=== PATIENT | male | born 1980 | race Hispanic/Latino ===

== ENCOUNTER 2019-07-21 17:09 | Inpatient (IN) | payer MEDICAID, OTHER ==
[~2019-07-21] VITALS: Ht 167.6 cm; Wt 147.5 kg
[2019-07-21] MEDS ORDERED: MORPHINE SULFATE 4 MG/1ML SYG ONE ×2 (17:18→21:00)
[2019-07-21] MEDS ORDERED: ONDANSETRON HCL 4 MG/2 ML VIAL ONE ×2 (17:18→21:00)
[2019-07-21] MEDS ORDERED: LIDOCAINE HCL 1% 20 ML VIAL ONE (17:27)
[2019-07-21] MEDS ORDERED: BUPIVACAINE/PF 0.5% 30ML VIAL ONE (17:27)
[2019-07-21] MEDS ORDERED: CLINDAMYCIN 600 MG/D5% WATER 50 ML IV ONE (17:42)
[2019-07-21 17:43] LABS: BASOPHILS % (AUTO) 0.9 % (0.0-5.0); EOSINOPHILS % (AUTO) 2.4 % (0.0-8.0); HEMATOCRIT 43.5 % (42-54); LYMPHOCYTES % (AUTO) 26.7 % (21.0-51.0); MEAN CORPUSCULAR HEMOGLOBIN 32.2 pg (27.0-33.0); MEAN CORPUSCULAR HGB CONC 34.9 g/dL (32.0-36.0); MEAN CORPUSCULAR VOLUME 92.3 fL (79-99); MONOCYTES % (AUTO) 9.4 % (3.0-13.0); NEUTROPHILS % (AUTO) 60.6 % (40.0-77.0); NUCLEATED RED BLOOD CELLS 0.1 % (0.0-0.19); PLATELET COUNT (AUTO) 179 K/uL (130-400); RED BLOOD CELL COUNT(AUTO) 4.71 MIL/uL (4.50-6.20); RED CELL DISTRIBUTION WIDTH 13.3 % (11.0-15.5); WHITE BLOOD COUNT (AUTO) 8.8 K/uL (4.8-10.8)
[2019-07-21] MEDS ORDERED: TETANUS/DIPHTHERIA TOXOID [ADULT] 0.5 ML VIAL IM ONE (17:43)
[2019-07-21] MEDS ORDERED: SODIUM CHLORIDE 0.9% 1000ML 1,000 ML IV ONE (17:43)
[2019-07-21 17:48] LABS: CREATININE 0.9 mg/dL (0.5-1.5); POTASSIUM 3.8 mmol/L (3.5-5.1)
[2019-07-21] MEDS ORDERED: CLONIDINE HCL 0.1 MG TABLET ONE (17:54)
[2019-07-21 17:57] LABS: INR 0.95 (0.85-1.15); PARTIAL THROMBOPLASTIN TIME 24.7 SEC (26.3-35.5)
[2019-07-21 18:22] LABS: ALBUMIN 3.6 g/dL (3.5-5.0); BILIRUBIN,TOTAL 0.4 mg/dL (0.2-1.0); TOTAL PROTEIN, SERUM 7.7 g/dL (6.0-8.3)
[2019-07-21 18:32] LABS: BILIRUBIN,DIRECT 0.1 mg/dL (0.0-0.3)
--- NOTE | 2019-07-21 22:45 | NUR ---
ADMISSION. ADMITTED FROM ER INTO ROOM 401, TRANSFERRED VIA STRETCHER. AWAKE, ALERT AND RESPONSIVE. DRESSING TO LEFT HAND OBSERVED, NO BLEEDING, C/O PAIN TO HAND 01/03. PATIENT AND FAMILY MEMBER ORIENTED TO ROOM, CALL LIGHT WITHIN REACH, BED IN LOWEST POSITION. Addendum: 07/21/19 at 2351 by TYSON SHEN RN Amended: Links added.
[2019-07-21 22:50] VITALS: BP 130/87
[2019-07-22 00:03] VITALS: BP 131/79
[2019-07-22] MEDS: MORPHINE SULFATE 2 MG/ML 1ML SYG IVP PRN ×5 (00:35→21:31)
[2019-07-22] MEDS: ACETAMINOPHEN-CODEINE 300/30MG TAB PO PRN ×5 (02:29→23:37)
[2019-07-22 04:04] VITALS: BP 142/85
[2019-07-22] MEDS ORDERED: PHARMACY COMMUNICATION MISC SCH (07:30)
[2019-07-22 07:59] VITALS: BP 140/90
[2019-07-22] MEDS: CEFAZOLIN SODIUM 1 GM VIAL IVP SCH ×3 (08:08→21:30)
--- NOTE | 2019-07-22 08:10 | NUR ---
pt was listed to have an allergy to pcn but he states it was a childhood allergy and has received abx in pcn family since then; pharmacy ok the pt to receive the ancef; i started the administration of it and diluted it in a 50cc ivpb; no reaction noted thus far;
--- NOTE | 2019-07-22 08:30 | NUR ---
pt took off the dressing to his left hand; i noted he has lacerations to the 2nd, 3rd and 4th fingers with the worst being his 4th finger lacerated from below his nail bed across the entire finger; his finger tip is warm but bluish in color and poorly approximated onto the finger; i have rinsed all the lacerations with normal saline and applied non adherant gauze to lacerations and a fluffy protective 4x4 gauze dressing; no fresh bleeding noted but small amount of old fresh bloody drainage on dressings pt removed; pt is c/o pain; i will medicate him with morphine; pt understands he is planned to go to surgery tomorrow; i will have him sign consent prior to receiving the morphine.
--- NOTE | 2019-07-22 08:58 | NUR ---
no reaction noted thus far to ancef infusing
--- NOTE | 2019-07-22 10:40 | NUR ---
I spoke to dr glynn on the phone and informed him of how pt's fingertip looks blue color and loosely approximated to finger; he stated after looking at xray he does not believe that the tip is salvageable and will need to be reconstructed and will keep as a case on Tuesday and that loose 4x4 gauze dressing with kerlix is ok to have on it.
[2019-07-22 11:50] VITALS: BP 122/75
[2019-07-22 16:00] VITALS: BP_SYST 128; BP_DIAS 59; BP_DIAS 78
--- NOTE | 2019-07-22 18:55 | NUR ---
cm note met with patient and [facility] resides athome with spouse, independent with ambulation and adls. no dme. provided low income clinics in area, and states he has applied with [facility] for medicaid, [facility] plan [place]. will assist as needed. Addendum: 07/22/19 at 1856 by KODAK ROSALES CM Amended: Links added.
[2019-07-22 20:00] VITALS: BP 135/92
[2019-07-23] VITALS (22 sets, daily range): BP systolic 123–157; BP diastolic 55–100
[2019-07-23] MEDS: MORPHINE SULFATE 2 MG/ML 1ML SYG IVP PRN ×2 (03:14→05:51)
[2019-07-23] MEDS: CEFAZOLIN SODIUM 1 GM VIAL IVP SCH (05:51)
--- NOTE | 2019-07-23 06:59 | NUR ---
PT TO SURGERY FOR LEFT HAND AT THIS TIME. PT LEFT UNIT IN STABLE CONDITION.
[2019-07-23] MEDS ORDERED: LACTATED RINGERS 1000ML 1,000 ML IV ONE (07:02)
[2019-07-23] MEDS ORDERED: DEXAMETHASONE SOD PHOSPHATE 10MG/ML 1ML VIAL ONE (07:29)
[2019-07-23] MEDS ORDERED: MIDAZOLAM HCL 1 MG/ML 2ML VIAL ONE (07:29)
[2019-07-23] MEDS ORDERED: LIDOCAINE PF 2% 5ML ABBOJECT ONE (07:29)
[2019-07-23] MEDS ORDERED: PROPOFOL 10 MG/ML 20ML VIAL IV ONE ×2 (07:30→07:40)
[2019-07-23] MEDS ORDERED: ONDANSETRON HCL 4 MG/2 ML VIAL ONE (07:30)
[2019-07-23] MEDS ORDERED: FENTANYL CITRATE PF 50 MCG/1 ML 2ML VIAL ONE (07:32)
[2019-07-23] MEDS ORDERED: MEPERIDINE-PF 25 MG/ML SYG ONE ×2 (08:22→08:34)
[2019-07-23] MEDS: ACETAMINOPHEN-CODEINE 300/30MG TAB PO PRN (12:33)
== END 2019-07-23 14:48 | disposition home or self-care (01) | DRG 906 ==
LOC: EDH 17:09 → OBSVTOIN 17:10 → EDHIP 17:10 → 4AH 22:33
PROVIDERS: ADMIT Surgery Plastic and Reconstructive Surgery; ATTEND Surgery Plastic and Reconstructive Surgery
PROC: 0PBV0ZZ Excision of Left Finger Phalanx, Open Approach (ICD-10-PCS; 2019-07-23)
PROC: 0JCK0ZZ Extirpation of Matter from Left Hand Subcutaneous Tissue and Fascia, Open Approach (ICD-10-PCS; 2019-07-23)
PROC: 0PHV34Z Insertion of Internal Fixation Device into Left Finger Phalanx, Percutaneous Approach (ICD-10-PCS; principal; 2019-07-23 08:00)
PROC: 0XM Anatomical Regions, Upper Extremities, Reattachment (ICD-10-PCS; 2019-07-23 08:00)
DX: S68.125A Partial traumatic metacarpophalangeal amputation of left ring finger, initial encounter (principal); Z68.43 Body mass index [BMI] 50.0-59.9, adult; E66.9 Obesity, unspecified; W31.2XXA Contact with powered woodworking and forming machines, initial encounter; Y93.89 Activity, other specified; Y92.009 Unspecified place in unspecified non-institutional (private) residence as the place of occurrence of the external cause; Y99.8 Other external cause status; Z88.0 Allergy status to penicillin
CPT/HCPCS: 36415; 73130; 80048; 80076; 82550; 84484; 85025; 85610; 85730; 90714; 93005; A4565; G0378; J0690; J1100; J2001; J2175; J2250; J2270; J2405; J2704; J3010; J3490; J7030; J7120

== ENCOUNTER 2020-12-29 23:14 | Emergency (ER) | payer MEDICAID, OTHER ==
[2020-12-29 23:43] LABS: BASOPHILS % (AUTO) 0.6 % (0.0-5.0); EOSINOPHILS % (AUTO) 1.6 % (0.0-8.0); LYMPHOCYTES % (AUTO) 21.9 % (21.0-51.0); MEAN CORPUSCULAR HEMOGLOBIN 30.6 pg (27.0-33.0); MEAN CORPUSCULAR HGB CONC 34.1 g/dL (32.0-36.0); MEAN CORPUSCULAR VOLUME 89.8 fL (79-99); MONOCYTES % (AUTO) 6.8 % (3.0-13.0); NEUTROPHILS % (AUTO) 68.9 % (40.0-77.0); PLATELET COUNT (AUTO) 220 K/uL (130-400); RED CELL DISTRIBUTION WIDTH 13.3 % (11.0-15.5); WHITE BLOOD COUNT (AUTO) 8.3 K/uL (4.8-10.8)
[2020-12-29 23:54] LABS: CREATININE 1.1 mg/dL (0.5-1.5)
[2020-12-29 23:59] LABS: ALBUMIN 3.7 g/dL (3.5-5.0); BILIRUBIN,TOTAL 0.4 mg/dL (0.2-1.0); TOTAL PROTEIN, SERUM 8.2 g/dL (6.0-8.3)
[2020-12-30 00:02] LABS: INR 0.98 (0.85-1.15); PARTIAL THROMBOPLASTIN TIME 24.1 SEC (26.3-35.5); PROTHROMBIN TIME 10.7 SEC (9.6-11.6)
== END 2020-12-30 02:09 | disposition home or self-care (01) ==
LOC: EDH 23:14
DX: E86.0 Dehydration (principal); R53.81 Other malaise; R53.83 Other fatigue; R07.89 Other chest pain; R06.02 Shortness of breath; Z20.822 Contact with and (suspected) exposure to COVID-19; Z88.0 Allergy status to penicillin; Z72.0 Tobacco use
CPT/HCPCS: 36415; 71045; 80053; 83690; 84484; 85025; 85610; 85730; 87426; 93005